=== PATIENT | male | born 1950 | race Caucasian/White ===

== ENCOUNTER 2019-12-05 05:42 | Emergency (ER) | payer OTHER ==
[~2019-12-05] VITALS: Ht 175.3 cm; Wt 115.7 kg
[~2019-12-05 05:42] MED LIST: GABA100C9 PO; LOSA25TA38 PO; METO25TA5 PO
[2019-12-05 06:40] VITALS: BP 159/91
[2019-12-05] MEDS ORDERED: methylPREDNISolone SOD SUCC 125 MG/2 ML VL IM ONE (07:15)
[2019-12-05] MEDS ORDERED: KETOROLAC TROMETH 15 mg/ml 1ML VL IM ONE (07:15)
[2019-12-05] MEDS ORDERED: cefTRIAXone SOD 1,000 MG VL IM ONE (07:15)
[2019-12-05] MEDS ORDERED: KETOROLAC TROMETH 60MG/2ML VIAL IM ONE (07:30)
[2019-12-05 08:23] LABS: Basophils # (auto) 0 10 ^3/uL (0-0.2); Basophils % (auto) 0.3 % (0.0-2.0); Eosinophils # (auto) 0.2 10 ^3/uL (0-0.8); Eosinophils % (auto) 3.2 % (0.0-7.0); Lymphocytes # (auto) 1.3 10 ^3/uL (0.4-5.4); Monocytes # (auto) 0.4 10 ^3/uL (0-1.3); Monocytes % (auto) 6.7 % (0.0-12.0); White Blood Cell 6.3 10^3/uL (4.4-10.8)
[2019-12-05 08:25] LABS: Hemoglobin 13.9 g/dL (13.5-17.5); Lymphocytes % (auto) 21.2 % (10.0-50.0); Mean Corpuscular Hemoglobin 34.7 pg (28.0-32.0); Mean Corpuscular Hgb Conc. 33.9 g/dL (32.0-36.0); Mean Corpuscular Volume 102.3 fL (80.0-100.0); Neutrophils # (auto) 4.3 10 ^3/uL (1.6-8.6); Neutrophils % (auto) 68.6 % (37.0-80.0); Nucleated Red Blood Cells % 0.1 %; Platelet Count (auto) 125 10^3/uL (140-450); Red Blood Cells 4.01 10^6/uL (4.5-5.90); Red Cell Distribution Width 13.5 % (11.8-14.3)
[2019-12-05 08:52] LABS: BUN/Creatinine Ratio 12.6; Calcium 8.3 mg/dL (8.5-10.1); Uric Acid 5.6 mg/dL (3.5-7.2)
== END 2019-12-05 09:08 | disposition home or self-care (01) ==
LOC: ER 05:42
DX: M10.041 Idiopathic gout, right hand (principal); I10 Essential (primary) hypertension
CPT/HCPCS: 36415; 73130; 80048; 84550; 85025; 96372; 99284; J0696; J2930

== ENCOUNTER 2023-04-12 12:21 | Emergency (ER) | payer OTHER ==
[~2023-04-12] VITALS: Ht 172.7 cm; Wt 100.0 kg
[~2023-04-12 12:21] MED LIST changes: +GABA-1308 PO; -GABA100C9 PO; +LOSA25TA15 PO; -LOSA25TA38 PO
[2023-04-12 13:10] VITALS: BP 106/65; PULSE 94; RESP 16; TEMP 98.6; O2SAT 96
[2023-04-12] MEDS ORDERED: TRAM50TA2 PO (14:45)
[2023-04-12] MEDS ORDERED: ACETAMINOPHEN 500 MG TAB PO ONE (14:45)
== END 2023-04-12 14:58 | disposition home or self-care (01) ==
LOC: ER 12:21
DX: S82.831A Other fracture of upper and lower end of right fibula, initial encounter for closed fracture (principal); S83.91XA Sprain of unspecified site of right knee, initial encounter; M17.11 Unilateral primary osteoarthritis, right knee; W18.39XA Other fall on same level, initial encounter; Y93.89 Activity, other specified; Y92.89 Other specified places as the place of occurrence of the external cause; Y99.8 Other external cause status
CPT/HCPCS: 29515; 73562; 73610

== ENCOUNTER 2024-11-30 06:28 | Inpatient (IN) | payer OTHER ==
[~2024-11-30] VITALS: Ht 170.2 cm; Wt 122.3 kg
[2024-11-30] VITALS (11 sets, daily range): BP systolic 97–145; BP diastolic 63–91; PULSE 81–123; RESP 16–20; TEMP 97.8; O2SAT 90–99
[~2024-11-30 06:28] MED LIST changes: +ASCO100076 PO; +CHOL20TA PO; +CYAN1TAB11 PO; +LOSA-533 PO; -LOSA25TA15 PO; +MAGN1CAP5; +MISCCAP66 PO; +MULT1TAB28 PO; +OMEGCAP28 PO; +RIVA10TA PO; +ZINC50TA7 PO
[2024-11-30] MEDS: ceFAZolin 1GM/50ML 100 ML IV ONE ×2 (07:41→08:30)
[2024-11-30] MEDS: ACETAMINOPHEN IV 100 ML IV ONE (08:30)
[2024-11-30] MEDS: PREGABALIN CAPSULE 75 MG CAP ONE (08:30)
[2024-11-30] MEDS: CELECOXIB 100 MG CAP ONE (08:31)
[2024-11-30] MEDS: ACETAMINOPHEN IV 1000 MG/100ML (10MG/ML) IV ONE (09:15)
[2024-11-30] MEDS: PREGABALIN CAPSULE 75 MG CAP PO ONE (09:15)
[2024-11-30] MEDS: CELECOXIB 100 MG CAP PO ONE (09:15)
[2024-11-30] MEDS: BUPIVACAINE 0.25% INJ 50ML VIAL ONE (09:45)
[2024-11-30] MEDS ORDERED: NITROGLYCERIN 0.4 MG SL TAB SL PRN (09:45)
[2024-11-30] MEDS: LACTATED RINGER'S 1,000 ML IV SCH (09:45)
[2024-11-30] MEDS ORDERED: MORPHINE SULFATE INJ 2 MG/ml SYRG IV PRN (09:45)
[2024-11-30] MEDS: TRANEXAMIC ACID 20 ML ONE (09:45)
[2024-11-30] MEDS ORDERED: ONDANSETRON HCL 4 MG/2 ML VIAL IV PRN ×2 (09:45→13:00)
[2024-11-30] MEDS ORDERED: OXYCODONE W/ ACETAMINOPHEN 5/325MG TABLET PO PRN ×2 (09:45→17:15)
[2024-11-30] MEDS ORDERED: KETOROLAC TROMETH 30 MG/ML 1ML VIAL ONE (09:54)
[2024-11-30] MEDS ORDERED: MORPHINE SULF PF 5 MG/10 ML VIAL ONE ×2 (09:54→10:31)
[2024-11-30] MEDS: CEFEPIME 1GM/ 50ML 50 ML IV SCH (10:00)
[2024-11-30] MEDS: oxyCODONE ER 10 MG TAB PO SCH (10:00)
[2024-11-30] MEDS: DOCUSATE SOD 100 MG CAP PO SCH ×2 (10:00→21:31)
[2024-11-30] MEDS ORDERED: KETAMINE 50mg/ML 1ml syringe ONE (10:31)
[2024-11-30] MEDS ORDERED: fentaNYL CITRATE 100 MCG/2 ML VL ONE (10:31)
[2024-11-30] MEDS ORDERED: MIDAZOLAM HCL 2MG/2ML 2ml VIAL (1mg/ml) ONE (10:31)
[2024-11-30] MEDS ORDERED: PHENYLEPHRINE HCL 10 MG/ML VL ONE (10:32)
[2024-11-30] MEDS ORDERED: PROPOFOL 10 MG/ML 20 ML IV ONE (10:32)
[2024-11-30] MEDS ORDERED: ePHEDrine SULFATE 50 MG/ML AMP ONE (10:32)
[2024-11-30] MEDS ORDERED: GLYCOPYRROLATE 0.2 MG/ML 1ML VIAL ONE (10:32)
[2024-11-30] MEDS: CEFEPIME 1GM/ 50ML 50 ML IV ONE (10:55)
[2024-11-30] MEDS: VANCOMYCIN HCL 1000 MG VL ONE (11:41)
[2024-11-30] MEDS ORDERED: DexAMETHasone SOD PHOS 10MG/1ML VIAL INJ IV PRN (13:00)
[2024-11-30] MEDS ORDERED: diphenhdrAMINE HCL 50 MG/1 ML VL IV PRN (13:00)
[2024-11-30] MEDS ORDERED: NALOXONE HCL 0.4 MG/ML VIAL IV PRN (13:00)
[2024-11-30] MEDS: ONDANSETRON HCL 4 MG/2 ML VIAL IV ONE (13:00)
[2024-11-30] MEDS ORDERED: ceFAZolin 2 GM/D5W50ml 50 ML IV SCH (14:00)
[2024-11-30] MEDS: SODIUM CHLOR 0.9% PF (SALINE LOCK) 10ML VIAL/SYR IV SCH (14:00)
--- NOTE | 2024-11-30 14:28 | DVH ---
EXAM: XY R KNEE 3V XRAY CLINICAL INDICATION: S/P SURGERY TECHNIQUE: XY R KNEE 3V XRAY Comparison: XY R KNEE 3V XRAY on DOS: 04/12/23 FINDINGS/IMPRESSION: There is no evidence of acute fracture or dislocation. Right total knee arthroplasty with surgical skin maynor The alignment is anatomical. There is no radiopaque foreign body.
--- NOTE | 2024-11-30 16:18 | DVHINCON2 ---
Date Seen: Dec 01, 2024 Referring Physician Orthopedic spine surgery. Reason for Consultation 74-year-old male with a past medical history of bilateral pulmonary embolism currently on Xarelto presented to the hospital for elective procedure for right total knee osteoarthritis. Patient was underwent right total knee arthroplasty. Patient was stated that his primary doctor wants to change Xarelto to Eliquis because of bilateral pulmonary embolism. Patient was currently denies any shortness of breath or chest pain. Past Medical History Pulmonary embolism currently on Xarelto Right knee osteoarthritis Past Surgical History Status post right total knee arthroplasty. Family History: Patient reports no known family medical history. Allergies: Coded Allergies: NO KNOWN ALLERGIES (Unverified , 09/03/18) Home Meds Reported Medications Windfall 3 Fatty Acids-Windfall 6 Fa (OMEGA 3-6-9 COMPLEX) Complex Cap, 1 TAB PO, CAP 11/26/24 Multiple Vitamins W/ Minerals (Centrum Adults) 1 Tab Tab, 1 TAB PO, TAB 11/26/24 Magnesium Bisglycinate (Magnesium Glycinate) Unknown Strength Cap 11/26/24 Cholecalciferol (Vitamin D3) 20 Mcg Tab, 50 MCG PO, TAB 11/26/24 Turmeric (Turmeric Curcumin) Curcumin Cap, 1 TAB PO, CAP 11/26/24 Ascorbic Acid (Vitamin C) 1,000 Mg Tab, 1000 MG PO, TAB 11/26/24 Cyanocobalamin (Vitamin B12) 1,000 Mcg Tab, 2000 MCG PO, TAB 11/26/24 Zinc Gluconate (Zinc) 50 Mg Tab, 50 MG PO, TAB 11/26/24 Rivaroxaban (XARELTO) 10 Mg Tab, 1 TAB PO DAILY, #10 TAB 11/26/24 Metoprolol Tartrate (Metoprolol Tartrate) 25 Mg Tab, 25 MG PO BID for 30 Days, MG 09/04/18 Gabapentin (Gabapentin) 100 Mg Cap, 800 MG PO BID for 30 Days, MG 09/04/18 Losartan Potassium (Losartan Potassium) 25 Mg Tab, 100 MG PO, TAB 09/04/18 Current Medications Current Medications Medications (Trade) Dose Ordered Sig/Ar Route PRN Reason Start Time Stop Time Status Last Admin Cefepime HCl 50 ml @ 12.5 mls/hr DAILY IV 11/30/24 10:00 Cefazolin Sodium/ Dextrose 50 ml @ 50 mls/hr Q8HR IV 11/30/24 14:00 11/30/24 14:37 DC Lactated Ringer's 1,000 ml @ 100 mls/hr Q10H IV 11/30/24 09:45 Sodium Chloride (Saline Lock Ns) 10 ml Q8HR IV 11/30/24 14:00 11/30/24 14:00 Oxycodone/ Acetaminophen (Percocet 5/ 325MG Tablet) 1 tab Q4HP PRN PO MODERATE PAIN 11/30/24 09:45 Hydromorphone HCl (Dilaudid Injection) 1 mg Q2HP PRN IV SEVERE PAIN (7-10 PAIN SCALE) 11/30/24 09:45 Oxycodone HCl (OxyCONTIN ER Tablet) 10 mg Q12HR PO 11/30/24 10:00 Ondansetron HCl (Zofran) 4 mg Q6HP PRN IV NAUSEA / VOMITING 11/30/24 09:45 Docusate Sodium (Colace Capsule) 100 mg Q12HR PO 11/30/24 10:00 Enoxaparin Sodium (Lovenox) 40 mg DAILY SC 12/01/24 10:00 Nitroglycerin (Ntrostat Sublingual) 0.4 mg Q5MINP PRN SL FOR CHEST PAIN 11/30/24 09:45 Morphine Sulfate 2 mg Q30M PRN IV FOR CHEST PAIN 11/30/24 09:45 Gabapentin (Neurontin Capsule) 800 mg BID PO 11/30/24 22:00 Metoprolol Tartrate (Lopressor Tablet) 25 mg BID PO 11/30/24 22:00 Multivitamins/ Minerals (Mvi W/ Minerals Tablet) 1 tab DAILY PO 12/01/24 10:00 Losartan Potassium (Cozaar Tablet) 25 mg DAILY PO 12/01/24 10:00 Diphenhydramine HCl (Benadryl Injection) 25 mg Q4HP PRN IV FOR ITCHING 11/30/24 13:00 Ondansetron HCl (Zofran) 4 mg Q4HP PRN IV NAUSEA / VOMITING 11/30/24 13:00 Naloxone HCl (Narcan) 0.2 mg Q5M PRN IV For respirations < than 10/min 11/30/24 13:00 11/30/24 13:06 DC Dexamethasone Sodium Phosphate (Decadron Injection) 10 mg PATTERN STAMPER PRN IV FOR ITCHING 11/30/24 13:00 11/30/24 13:01 DC Ketorolac Tromethamine (Toradol Injection) 20 mg Q6HP PRN IV MODERATE PAIN (4-6 PAIN SCALE) 11/30/24 13:00 12/05/24 12:59 Cefazolin Sodium/ Dextrose 50 ml @ 50 mls/hr Q8H IV 11/30/24 18:30 12/01/24 11:29 Rivaroxaban (Xarelto Tablet) 10 mg DAILY PO 12/01/24 10:00 UNV Review of Systems Twelve review of system were negative except mentioned above Vital Signs Vital Signs Date Time Temp Pulse Resp B/P (MAP) Pulse Ox O2 Delivery O2 Flow Rate FiO2 11/30/24 14:30 74 12 114/66 (82) 97 11/30/24 12:45 7.0 11/30/24 12:45 97.7 97.7 11/30/24 12:45 Mask Physical Exam HEENT pupils are reactive Neck is supple CV is S1-S2 regular rate and rhythm Diminished breath sound bases GI posterior bowel sound Extremity no edema 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 1. Bilateral pulmonary embolism switch Xarelto to Eliquis 2. Status post right total knee arthroplasty for knee osteoarthritis -continue pain meds as needed, discontinue Xarelto start Eliquis. -orthopedics follow up, physical therapy evaluation and treatment. Plan discussed with: Patient Date of Service: Dec 01, 2024 Billing Provider: IVONE COLON MD Common Visit Codes: NOT BILLABLE IVONE COLON MD Nov 30, 2024 16:18
[2024-11-30] MEDS ORDERED: ceFAZolin 1GM/50ML 50 ML IV SCH (17:15)
[2024-11-30] MEDS: ceFAZolin 2 GM/D5W50ml 50 ML IV SCH (17:50)
[2024-11-30] MEDS: HYDROmorphone HCL 2 MG/ML VL/or syr IV PRN (17:58)
[2024-11-30] MEDS: METOPROLOL TARTRATE 25 MG TAB PO SCH (21:19)
[2024-11-30] MEDS: GABAPENTIN 400 MG CAP PO SCH (21:19)
--- NOTE | 2024-11-30 22:32 | DVH ---
CLINICAL INDICATION: S/P SURGERY TECHNIQUE: 3 radiographic views of the right knee were obtained. Comparison: XY R KNEE 3V XRAY on DOS: 11/30/24, XY R KNEE 3V XRAY on DOS: 04/12/23. FINDINGS/IMPRESSION: Right total knee arthroplasty, with anterior skin closure maynor The visualized joint space is well maintained. The alignment is anatomical. There is no radiopaque foreign body.
[2024-12-01] VITALS (27 sets, daily range): BP systolic 96–131; BP diastolic 53–85; PULSE 75–105; RESP 14–20; TEMP 97.9–99.9; O2SAT 89–100
[2024-12-01] MEDS: KETOROLAC TROMETH 30 MG/ML 1ML VIAL IV PRN (02:24)
[2024-12-01 08:37] LABS: Hematocrit 33.2 % (41.0-53.0); Hemoglobin 11.2 g/dL (13.5-17.5)
[2024-12-01] MEDS: LOSARTAN POTASSIUM 25 MG TAB PO SCH (09:03)
[2024-12-01] MEDS: MULTIPLE VITAMINS W/ MINERALS TAB PO SCH (09:04)
[2024-12-01] MEDS: ENOXAPARIN SOD 40 MG/0.4 ML SYRINGE SC SCH (09:06)
[2024-12-01] MEDS ORDERED: RIVAROXABAN 10 MG TAB PO SCH (10:00)
[2024-12-01] MEDS: APIXABAN 5 MG TAB PO SCH (21:23)
[2024-12-02 05:00] VITALS: BP 103/50; PULSE 95; RESP 19; TEMP 98.2; O2SAT 91
--- NOTE | 2024-12-02 07:39 | DVHDS2 ---
Discharge Summary Date of Admission Nov 30, 2024 at 09:43 Date of Discharge: Dec 02, 2024 Wounds: 1. You will likely have a gel-type dressing over your wound, you may keep this on for 7-14 days after leaving the hospital until your first post-op visit, unless it becomes soiled or your skin becomes irritated. If a wound vac dressing is placed on your knee this is to be left in place for one week and will be changed as needed. After your remove the dressing or wound vac, the home health nurse may place clean dry dressing over your wound. Keep wound covered, clean and dry for two weeks. 2. Mayo will be removed during your initial post-op visit. If you have concerns about our wound, please call the office immediately. If nervous about staple removal can take pain pill one hour prior to appointment. 3. If there is drainage from your wound, change the dressing daily until it stops. If drainage lasts more than 10 days, call our office. 4. Low grade (up to 100 degrees) fever is common for the first week after surgery. You should take your temperature daily. If you have fevers of 101 or more, please call the office. Labs/Diagnostic Data: Laboratory Results Test 12/01/24 07:07 Hemoglobin 11.2 g/dL (13.5-17.5) Hematocrit 33.2 % (41.0-53.0) Other Laboratory Tests 12/01/24 07:07 Brief Hx & Hospital Course: s/p right TKA Condition at Discharge: Good Final Diagnosis/Problems List right knee osteoarthritis Discharge Disposition: [facility]-Way Facility Discharge Instruct/Medications Diet: Regular Diet comment: may advance diet as tolerated, drink plenty of fluids and avoid alcohol while taking narcotics Activity: See Comment Activity comment: 1.You can bear as much weight as you tolerate on your knee unless specifically instructed otherwise. You may use the walking aid which you were discharged with and switch to a cane whenever you feel comfortable doing so. You should use an assistive device until you can walk comfortably without it. Keep in mind that every patient moves at their own speed of recovery so take your time. 2.A physical therapist will visit you at home. 3.Use CPM machine as instructed (6 hours a day) and increase flexion by 5 degrees daily. 4.High impact activity such as jumping, aerobics, tennis, and skiing are not permitted during the first 3 months after surgery. These activities can contribute to accelerated wear and should be done with caution after this time. Discuss this with your surgeon if you have questions. 5.Although a bath or whirlpool is NOT permitted during the first 2-3 weeks, you may shower as soon as you get home from the hospital provided there is no wound drainage. Place a dressing or covering over the wound when you shower. 6.Swimming is not permitted until the wound is healed, which typically occurs approximately 3-4 weeks after surgery. Follow Up/Referral: 1.Driving is not permitted within the first 2 weeks. 2.Your first postoperative visit will take place 2 weeks after discharge. Please call the office once you are home from the hospital to arrange this appointment. 3.Antibiotic preventative treatment is required before dental or other invasive procedures. Please ask your surgeon about this at your first postoperative visit. If you experience chest pain, shortness of breath or severe painful calf swelling, go to the nearest emergency room to be evaluated. Please call our office once your situation is stabilized. Medications: 1.You will be discharged with pain medication, a blood thinner (unless you were previously on a blood thinner prior to surgery) and stool softener. Please follow the instructions regarding these medications as provided by your nurse at the hospital upon discharge. 2.Blood clots in the leg are a known complication of surgery. It is very important that you take the medication to protect against clots. Depending on what you are discharged on typically it is Lovenox 40mg daily for 2 weeks or Aspirin 81mg twice daily for 4 weeks. After you finish this, you should then take baby Aspirin (81mg) once daily for 2 weeks. 3.You should restart all of your prescription medications once discharged from the hospital/surgery center unless specifically instructed otherwise. 4.Herbal supplements may be restarted 2 weeks after surgery. 5.If you have been given Coumadin as a blood thinner, please follow up with your director of enterprise architecture during the first two weeks after surgery to review medications and overall medical well-being. 6.Please note that narcotic pain medication may cause constipation. Please remember to take stool softeners (Colace) when using narcotics to help reduce the change of constipation. You should not use alcohol together with narcotic medication. Discharge Statement: "Patient was advised to return to the ER or call 911 if any headaches, dizziness, shortness of breath, chest pain, abdominal pain, bleeding, fevers, or worsening of medical condition. Patient was counseled about treatment plan, medications, possible side effects, patientverbalized understanding. All questions were answered to the best of my ability. This discharge took greater then 30 minutes in planning, reviewing documentation, counseling the patient, and discussing with other team members." ASSESSMENT ASSESSMENT Assessment GARCÍA MEREDITH NP Dec 02, 2024 07:39
[2024-12-02 08:00] VITALS: PULSE 85
[2024-12-02 08:15] VITALS: RESP 18; O2SAT 95
[2024-12-02 08:41] VITALS: BP 111/53; PULSE 86; RESP 19; TEMP 98.4; O2SAT 94
[2024-12-02 09:01] LABS: Hemoglobin 10.5 g/dL (13.5-17.5)
[2024-12-02 09:38] VITALS: BP 111/53; PULSE 86
[2024-12-02 13:02] VITALS: BP 111/69; PULSE 103; RESP 19; TEMP 98; O2SAT 96
--- NOTE | 2024-12-03 06:11 | DVHOP2 ---
Operative Report - 2 Report Details Date: 12/03/24 Preop Diagnosis: right knee osteoarthritis Postop Diagnosis: right knee osteoarthritis Surgeon: Alicia MORIN/ Dinesh Sal MD Parts Designer: Fawad TAYLOR Anesthesiologist: Gissel TAYLOR Anesthesia: Regional Implant: [employer] see implant log Consent: The patient was informed of the risks and benefits of the procedure. These include but are not limited to complications of anesthesia, postoperative infection, incomplete relief of symptoms, recurrence of symptoms, damage to blood vessels, nerves and tendons, deep venous thrombosis, pulmonary embolism and possible need for repeat surgery in the future. Estimated Blood Loss: 50 cc Name of Procedure Performed Right total knee arthroplasty Procedure Details Procedure Details: FINDINGS: degenerative disease with grade IV changes with valgus deformity INDICATION: This patient has failed non-operative treatments for knee arthritis and is now indicated for a total knee replacement. Preoperatively in the waiting area as well as in the office, I had a long discussion with the patient regarding the plan, the expected outcome, the risks, benefits, and alternatives of surgery. The risks include, but are not limited to, infection (which may require future surgery and removal of implants) , bleeding (which may require a transfusion), damage to nerves, arteries, veins, tendons, muscles and other adjacent structures. Also discussed the possibilities of intraoperative fractures, implant loosening, heterotopic bone formation, and revision for variety of reasons, and medical complications etc. This was discussed at length and consent has been obtained. DESCRIPTION OF PROCEDURE: In the preoperative holding area, the consent was r eviewed and the appropriate extremity was verified by the patient and marked with my initials. The patient was then transferred to the operating theatre. Appropriate anesthesia was induced. All bony prominences were well padded. A time out was performed verifying the side and site of surgery according to standard protocol. Preoperative antibiotics were given 10 minutes prior to to urniquet inflation. Tranexamic was given. A well padded thigh tourniquet was applied. The extremity was then prepped and draped in the usual sterile fashion. The extremity was exsanguinated and the tourniquet was inflated. We then made a mid-line incision, which we continued to the underlying capsular tissue. We performed a medial parapatellar arthrotomy. We periosteally exposed the proximal tibia, excised the anterior fat pad and synovium from the distal aspect of the femur. We then subluxed the patella and brought the knee up into flexion. The lateral meniscus, ACL, and PCL were released. We used the appropriate guide with attached computer navigation to secure the distal femoral cutting block to the femur with pins and completed the distal femoral cut in 0 degrees to the mechanical axis with an oscillating saw. We removed the distal femoral cutting block and turned our attention to the tibia. We used the extramedullary tibial alignment guide with computer navigation to secure the proximal tibial cutting block to the tibia with pins, setting it for a 1mm cut from the more involved side, medially and completed the proximal tibial cut. We then used the spacer block and alignment vandana to check the varus- valgus angle of our cuts and the extension gap. We marked our femoral anatomy, including Marya's line and the epicondylar axis. Using that as a rotational guide, we used the sizing guide to size our femur properly, using a stylus to ensure there would be no notching. We then used the AP cutting guide to make our anterior and posterior cuts and chamfer cuts with an oscillating saw. We again checked the flexion and extension gaps and coronal balancing. Next, we sized our tibia and secured a baseplate with appropriate rotation with pins. We placed a trial femur in position and completed preparation of the notch with reamers and box osteotome and placed a trial notch in position. We used trials to choose our liner size and then placed the liner in place and reduced the knee . We then placed a trial button in place. At this point, we checked our seven parameters: 1) Limb alignment 2) Extension 3) Flexion against gravity 4) Flexion stability 5) Varus-valgus balancing 6) Component rotation 7) Patella tracking We were satisfied with these and removed all trials with the exception of the baseplate. We completed preparation of the tibia with the appropriate reamer and keel impactor and then removed the baseplate. We placed a bone plug in the distal femur and then irrigated and dried all bony surfaces and injected our pain cocktail. Cement with antibiotics was hand-mixed on the back table. We thumb impacted cement into the proximal tibia, distal femur impacted our tibial, femoral and patellar components into position. Excess cement was removed with curettes. We impacted our liner and reduced the knee and held it with axial loading until all cement hardened. We did a aris-articular cocktail block Once all cement had hardened, we brought the knee back up into flexion and used an osteotome to remove excess cement. We released the tourniquet and achieved hemostasis where necessary. A dilute betadine solution (17.5mL in 500mL saline) was used to wash the joint and left to sit for 3 minutes. This was then irrigated out with copious amounts of pulse lavage. We sprinkled 1g vancomycin powder below the fascia and 1g above the fascia. We copiously irrigated the knee. We re-checked our seven parameters. We closed our capsular incision with a PDS style suture. We irrigated further. We closed the subcutaneous tissue with Vicryl suture and re-approximated the skin with Ivel. We verified all lower extremity compartments were soft and compressible and that we had intact distal pulses. We wrapped the extremity in sterile Webril and jeff bandage. The patient was transferred to the recovery room in stable condition. Condition Good Disposition Still a Patient DINESH SAL MD Dec 03, 2024 06:11
== END 2024-12-02 13:57 | DRG 470 ==
LOC: SUR 06:28 → EDUNIT# 07:00 → OVERFLOW 09:43 → WEST WING 17:31 → TELE-WESTW 20:58
PROVIDERS: ADMIT Orthopaedic Surgery Adult Reconstructive Orthopaedic Surgery; ATTEND Orthopaedic Surgery Adult Reconstructive Orthopaedic Surgery
PROC: 8E0YXBZ Computer Assisted Procedure of Lower Extremity (ICD-10-PCS; 2024-11-30)
PROC: 0SRC0J9 Replacement of Right Knee Joint with Synthetic Substitute, Cemented, Open Approach (ICD-10-PCS; principal; 2024-11-30 10:41)
DX: M17.11 Unilateral primary osteoarthritis, right knee (principal); M21.061 Valgus deformity, not elsewhere classified, right knee; Z86.711 Personal history of pulmonary embolism; Z79.899 Other long term (current) drug therapy; Z79.01 Long term (current) use of anticoagulants
CPT/HCPCS: 36415; 73562; 85014; 85018; 86850; 86900; 86901; 97110; 97116; 97163; 97530; C1713; G0378; J0131; J1885; J2250; J2704; J3490